=== PATIENT | female | born 1995 | race Caucasian/White ===

== ENCOUNTER 2020-01-11 09:48 | Emergency (ER) | payer BC ==
[~2020-01-11] VITALS: Ht 162.6 cm; Wt 63.6 kg
[~2020-01-11 09:48] MED LIST: MICROGESTIN 1/21 TAB PO; NORCO 325 MG-51 TAB PO
[2020-01-11 09:52] VITALS: BP 110/78; TEMP 98.2
[2020-01-11] MEDS ORDERED: NEXPLANON68 MG ID (09:56)
[2020-01-11 10:05] LABS: COLLECTION METHOD CLEAN CATCH
[2020-01-11] MEDS ORDERED: MAXALT10 MG (10:10)
[2020-01-11 10:17] LABS: MUCOUS Present /lpf; PH 5 (5-8); SQUAMOUS EPITHELIAL 0-2 /hpf; URINE APPEARANCE Clear; URINE BACTERIA None Seen /hpf; URINE BILIRUBIN Negative (NEGATIVE); URINE BLOOD 3+ (NEGATIVE); URINE COLOR Yellow; URINE GLUCOSE Negative (NEGATIVE); URINE KETONE Negative (NEGATIVE); URINE LEUKOCYTE ESTERASE Negative (NEGATIVE); URINE NITRATE Negative (NEGATIVE); URINE PROTEIN(semi-quant) Negative (NEGATIVE); URINE UROBILINOGEN Negative (NEGATIVE)
[2020-01-11 10:33] LABS: BASO % 0.3 % (0.0-2.0); EOS # 0.1 (0.0-0.7); EOS % 0.7 % (0-4.0); GRAN # 6.1 (1.4-6.5); GRAN % 67.6 % (42.2-75.2); HEMATOCRIT 37.5 % (37.0-47.0); HEMOGLOBIN 11.8 g/dl (12.5-16.0); LYMPH # 2.1 (1.2-3.4); LYMPH % 22.7 % (20.0-51.0); MEAN CELL VOLUME 89 fl (80.0-100.0); MEAN CORPUSCULAR HEMOGLOBIN 28 pg (27.0-31.0); MEAN CORPUSCULAR HGB CONC 32 g/dl (33.0-37.0); MEAN PLATELET VOLUME 9.3 fl (7.4-10.4); MONO # 0.8 (0.1-0.6); MONO % 8.5 % (1.7-9.3); PLATELET COUNT 320 K/mm3 (130-400); RED BLOOD COUNT 4.23 M/mm3 (4.10-5.30); REDCELL DISTRIBUTION WIDTH-CV 14.1 % (11.5-14.5)
[2020-01-11 10:45] LABS: ALANINE AMINOTRANSFERASE 15 U/L (4-34); ALBUMIN 4.1 gm/dL (3.5-5.0); ALKALINE PHOSPHATASE 50 U/L (50-136); ANION GAP 7 mmol/L (7-16); AST,SGOT 18 U/L (15-37); BILIRUBIN,TOTAL 0.4 mg/dL (0.0-1.0); BLOOD UREA NITROGEN 14 mg/dL (7-17); CALCIUM 9.1 mg/dL (8.4-10.2); CARBON DIOXIDE 23 mmol/L (22-30); CHLORIDE 107 mmol/L (98-107); CREATININE, serum 0.64 (0.52-1.25); GLUCOSE 90 mg/dL (74-106); POTASSIUM 4.3 mmol/L (3.4-5.0); SODIUM 137 mmol/L (137-145); TOTAL PROTEIN 7.4 gm/dL (6.4-8.2)
[2020-01-11 10:49] LABS: C-REACTIVE PROTEIN < 0.5 mg/dL (0.0-0.9)
[2020-01-11 11:18] VITALS: PULSE 85
== END 2020-01-11 11:18 | disposition home or self-care (01) ==
LOC: COL.ER 09:48
PROVIDERS: Nurse Practitioner
DX: R10.30 Lower abdominal pain, unspecified (principal); G43.909 Migraine, unspecified, not intractable, without status migrainosus; Z91.013 Allergy to seafood

== ENCOUNTER 2022-01-25 11:14 | Emergency (ER) | payer BC ==
[~2022-01-25] VITALS: Ht 162.6 cm; Wt 54.5 kg
[~2022-01-25 11:14] MED LIST changes: +MAXALT10 MG; +NEXPLANON68 MG ID
[2022-01-25 11:29] VITALS: TEMP 97.3
[2022-01-25 12:13] VITALS: BP 106/55; PULSE 70
== END 2022-01-25 12:15 | disposition home or self-care (01) ==
LOC: COL.ER 11:14
DX: S61.412A Laceration without foreign body of left hand, initial encounter (principal); Z23 Encounter for immunization; W26.0XXA Contact with knife, initial encounter